=== PATIENT | male | born 1960 | race Caucasian/White ===

== ENCOUNTER 2018-11-15 10:26 | Emergency (ER) | payer BC, OTHER ==
--- OUTSIDE RECORDS SUMMARY | 2018-11-15 10:36 | XMS REPORT | Clinical Summary ---
:1960 Author Organization [facility] Address [address] [place] [address] Care Team Providers Name Role Phone Neil Covington DO Primary Care Provider Allergies Not on File Medications Not on file Active Problems Not on file Social History Tobacco Use Types Packs/Day Years Used Date Never Assessed Sex Assigned at Date Recorded Not on file Job Start Date Occupation Industry Not on file Not on file Not on file Travel History Travel Start Travel End No recent travel history available. Last Filed Vital Signs Not on file Plan of Treatment Not on file Results Not on fileafter 11/14/2017
--- OUTSIDE RECORDS SUMMARY | 2018-11-15 10:36 | XMS REPORT | Continuity of Care Document ---
:1960 Author Organization [facility] Care Team Providers Name Role Phone [facility] Unavailable Unavailable Problems Problem Status Onset Classification Date Comments Source Date Reported M23.8X2 - OTHER Active [facility] INTERNAL 6 [facility] DERANGEMENTS OF Joint Medications No Data Provided for This Section Allergies, Adverse Reactions, Alerts Substance Category Reaction Severity Reaction Status Date Comments Source type Reported No Known Assertion Drug [facility] Medication allergy [place] Allergies Immunizations No Data Provided for This Section Results No Data Provided for This Section Pathology Reports No Data Provided for This Section Diagnostic Reports Report Value Date Source Spine lumbar series EXAMINATION: LUMBAR SPINE SERIES 5 VIEWS 11/08/2018 [facility] DX DATE: 11/08/2018 CLINICAL INDICATION: M54.41 Lumbago with sciatica, right side COMPARISON: None TECHNIQUE: AP, lateral, oblique views of the lumbar spine including a cone view of the lumbosacral region DISCUSSION: For the purpose of this report, there are 5 lumbar-type nonrib-bearing vertebral bodies. The height and alignment of the lumbar vertebral bodies are maintained. There is no spondylolisthesis. There is straightening of the normal cervical lordosis. There is suggestion of congenital narrowing of the spinal canal on the basis of short pedicles. No fracture or aggressive bony changes are identified. There are degenerative changes with anterior osteophytes at L4-L5. There are atherosclerotic calcifications in the aortoiliac vessels. There are clips in the right and left upper quadrants. Please correlate with surgical history. Bowel gas pattern is nonspecific. IMPRESSION: 1. No acute abnormality of the lumbar spine. Straightening of the normal cervical lordosis may be related to positioning and/or muscular spasm. 2. Degenerative changes spondylosis at L4-L5 3. 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 Surgical clips in the right and left upper quadrants. Please correlate with history. RECOMMENDATION: Further evaluation with MRI lumbar spine should be considered symptoms indicate an underlying neural impingement. Chest 2 views DX EXAM: XR CHEST 2 VIEWS 05/28/2016 [facility] DATE: 05/28/2016 2:57 PM TOWER DIRECTOR INDICATION: J18.9 Pneumonia, unspecified organism COMPARISON: None TECHNIQUE: PA and lateral chest radiographs FINDINGS: Patchy airspace opacities are seen in the right lower lobe medially. Minimal streaky linear opacities are seen in the left lower lobe medially. No other lung parenchymal or pleural abnormaliti es are seen. Delphine and pulmonary vasculature are normal. Cardiomediastinal silhouette is normal in appearance. No acute bony abnormality is identified. Surgical clips are seen over the left upper quadrant medially and over the right upper quadrant. IMPRESSION: 1. Patchy airspace opacities in the right lower lobe with streaky linear densities in the left lower lobe, likely a mixture of atelectasis and pneumonia. Follow-up chest x-ray in 2-4 weeks following appropriate treatment is recommended. 2. No other cardiopulmonary abnormalities are seen. Knee wo contrast MRI MRI of the Right Knee Without IV Contrast 05/29/2015 [facility] History: pain. Joint Prior surgery Comparison Study: none Technique: The study was performed on a high field magnet without intravenous contrast. Findings: Menisci: There is prominent truncation of the body and posterior horn of the medial meniscus presumably representing prior partial medial meniscectomy. Body segment is medially extruded. Prominent broad -based degenerative postoperative signal. Lateral meniscus remains intact. Cruciate Ligaments: Anterior and posterior cruciate ligaments are intact. Collateral Ligaments: Medial collateral ligament is intact. Lateral collateral complex appears intact. The patellar and quadriceps tendons are intact. Osseous Structures: Prominent subchondral bone marrow edema along the central weightbearing articular aspect of the medial femoral condyle. There is a serpiginous horizontal focus of decreased signal in tensity parallel to the articular cortex. Findings most likely represent a stress related injury with trabecular microfracture. There is similar prominent bone marrow edema in the medial tibial plateau again with trabecular microfracture. Grade 3/4 chondromalacia central medial femoral condyle and to a lesser extent the medial tibial plateau. The articular cartilage in the lateral compartment is preserved. Soft Tissues: There is a moderate joint effusion There is a 2 cm Argueta cyst. Patellofemoral Compartment: Grade 3/4 chondromalacia patella apex and lateral facet with subchondral cystic change. Grade 2/3 chondromalacia medial trochlear facet. Medial and lateral patellar retinacula appear intact. Impression: Status post presumed partial medial meniscectomy of the body and posterior horn. Medially extruded body segment. No definite recurrent displaced tear. Prominent subchondral bone marrow edema medial femoral condyle and medial tibial plateau with findings highly compatible with a stress related injury with trabecular microfracture. Severe chondromalacia patellofemoral compartment. Small Argueta's cyst. Moderate joint effusion with synovitis. Dictation Code: 100 Consultation Notes No Data Provided for This Section Discharge Summaries No Data Provided for This Section History and Physicals No Data Provided for This Section Vital Signs No Data Provided for This Section Encounters Location Location Encounter Encounter Reason Attending ADM DC Status Source Details Type Number For Provider Date Date Visit [facility] Outpt Diag [id number] Adebayo 05/29 05/30 [facility] [place] [facility] Outpt Diag [id number] Corky 05/28 05/29 [facility] [place] [facility]2016 [facility] Outpt Diag [id number] Neil 11/08 11/09 [facility] /2018 [facility] Procedures No Data Provided for This Section Assessment and Plan No Data Provided for This Section Plan of Care No Data Provided for This Section Social History Social History Date Source No data available for this 11/09/2018 [facility] [place] section No data available for this 05/30/2015 [facility] section Family History No Data Provided for This Section Advance Directives No Data Provided for This Section Functional Status No Data Provided for This Section
--- OUTSIDE RECORDS SUMMARY | 2018-11-15 10:37 | XMS REPORT ---
:1960 [facility] Address [address] [place] [address] [address] [place] [address] Care Team Providers Name Role Phone Unavailable Unavailable Unavailable Payers Payer Name Policy Type Policy Number Effective Date Expiration Date Problems This patient has no known problems. Allergies, Adverse Reactions, Alerts Allergy Allergy Status Severity Reaction(s) Onset Inactive Treating Comments Name Type Date Date Clinician No Known DA Active U 2018-11 Allergies -03 00:00:0 0 Medications This patient has no known medications.
--- OUTSIDE RECORDS SUMMARY | 2018-11-15 10:37 | XMS REPORT | Summary of Care ---
:1960 Author Organization [facility] Outpatient Imaging - [facility] [id number] [place] [address] [address] [place] [address]- Encounter HQ Encntr_alias(FIN) [id number] Date(s): 05/28/16 - 05/28/16 [facility] Outpatient Imaging [facility] [address] [place] [address], [address] [place] [address]- [phone] Discharge Disposition: Home or Self Care Attending Physician: Corky Mcguire MD Vital Signs No data available for this section Problem List No data available for this section Allergies, Adverse Reactions, Alerts Substance Reaction Severity Status NKDA Active Medications No data available for this section Results No data available for this section Immunizations No data available for this section Procedures No data available for this section Social History No data available for this section Assessment and Plan No data available for this section
--- OUTSIDE RECORDS SUMMARY | 2018-11-15 10:37 | XMS REPORT | Summary of Care ---
:1960 Author Organization [facility] Outpatient Imaging - [facility] [address] [place] [address] [address] [place] [address]- Encounter HQ Encntr_alialena(FIN) [id number] Date(s): 11/08/18 - 11/08/18 [facility] Imaging [facility] [address] [facility], [address] [place] [address]- [phone] Discharge Disposition: Home or Self Care Attending Physician: Neil Covington DO Referring Physician: Neil Covington DO Vital Signs No data available for this section Problem List No data available for this section Allergies, Adverse Reactions, Alerts No Known Medication Allergies Medications No data available for this section Results No data available for this section Immunizations No data available for this section Procedures No data available for this section Social History No data available for this section Assessment and Plan No data available for this section
--- OUTSIDE RECORDS SUMMARY | 2018-11-15 10:37 | XMS REPORT | Summary of Care ---
:1960 Author Name Isacc True, Ya Address Unavailable Unavailable , Care Team Providers Name Role Phone York R.N., Ya Unavailable Unavailable LOWE-BHATIA D.O., SUHAS Unavailable Unavailable YEH D.O., LOS-SHANNON Unavailable Unavailable GIANFRANCO Willingham, NANI Unavailable Unavailable APRYL P.AAidan, JAILENE Unavailable Unavailable KAITLIN DO UT, SEEMA Unavailable Unavailable GIANFRANCO MOLINA, NANI Unavailable Unavailable Unavailable Unavailable Unavailable Functional Status Name Dates Details Functional status health issues are not documented Status: Name Dates Details Cognitive status health issues are not documented Status: Problems Name Dates Details Exposure to STD (V01.6, Z20.2) Status: Active 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, 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 Fever and chills (780.60, R50.9) Status: Active Nausea (787.02, R11.0) Status: Active Cervicalgia (723.1, M54.2) Status: Active Acute upper respiratory infection (465.9, J06.9) Status: Active Hypogonadism male (257.2, E29.1) Status: Active Acute bronchitis due to infection (466.0, J20.8) Status: Active Influenza A (487.1, J10.1) Status: Active Insomnia (780.52, G47.00) Status: Active Acute pharyngitis due to other specified organisms (462, J02.8) Status: Active Acute non-recurrent sinusitis of other sinus (461.8, J01.80) Status: Active Elevated glucose level (790.29, R73.09) Status: Active Common cold (460, J00) Status: Active Need for influenza vaccination (V04.81, Z23) Status: Active Vitamin B12 deficiency (266.2, E53.8) Status: Active Chills (780.64, R68.83) Status: Active Acute bronchitis, bacterial (466.0, J20.8) Status: Active Acute diarrhea (787.91, R19.7) Status: Active Restless legs (333.94, G25.81) Status: Active Vitamin D insufficiency (268.9, E55.9) Status: Active Essential hypertension (401.9, I10) Status: Active Acute right-sided low back pain with right-sided sciatica (724.2, M54.41) Status: Active Labile blood pressure (796.2, R09.89) Status: Active Jock itch (698.9, L29.8) Status: Active Medications Name Dates Details Cyanocobalamin 1000 MCG/ML Injection Solution INJECT 1ML INTRAMUSCULARLY WEEKLY. Quantity: 1 Refills: 1 YEH D.O., Mariah 5 x 30 ML Vial Temazepam 30 MG Oral Capsule TAKE 1 CAPSULE AT BEDTIME Quantity: 30 Refills: 3 YEH D.O.SEEMA Start : 20-Jun-2017 Active Testosterone Cypionate 100 MG/ML Intramuscular Solution 0.75 mg intramuscular injection per week Quantity: 6 Refills: 0 YEH D.O., LOS-AUTUMNNActive 10 ML Vial Vitamin D (Ergocalciferol) 11552 UNIT Oral Capsule TAKE 1 CAPSULE WEEKLY. Quantity: 12 Refills: 0 LOWE-BHATIA D.O., LINDAActive valACYclovir HCl - 1 GM Oral Tablet TAKE 2 TABLETS TWICE DAILY FOR 1 DAY AT FIRST SIGN OF ONSET. Quantity: 30 Refills: 1 YEH D.O.SEEMA Start : 18-Nov-2015 Active Lisinopril-hydroCHLOROthiazide 20-25 MG Oral Tablet TAKE 2 TABLET DAILY Quantity: 90 Refills: 1 YEH D.O.SEEMA Start : 19-Mar-2016 Active Advil Cold/Sinus TABS Refills: 0 Active Mejia Cough Drops LOZG Refills: 0 Active Ipratropium [place] 0.03 % Nasal Solution USE 2 SPRAYS IN EACH NOSTRIL 3 TIMES DAILY NEEDED FOR NASAL CONGESTION Quantity: 1 Refills: 0 APRYL JAILENE Rolon Start : 21-Jan-2018 Active 30 ML Bottle ProAir HFA 108 (90 Base) MCG/ACT Inhalation Aerosol Solution INHALE 1 TO 2 PUFFS EVERY 4 TO 6 HOURS NEEDED. Quantity: 1 Refills: 0 NANI MEDEL M.D. Start : 26-May-2018 Active 8.5 GM Inhaler Gabapentin 300 MG Oral Capsule TAKE 1 CAPSULE AT BEDTIME. Quantity: 90 Refills: 1 YEH D.O., SEEMA Start : 30-Aug-2018 Active hydrALAZINE HCl - 25 MG Oral Tablet 1TABLET PO QD EVERY 8 HOURS IF SYSTOLIC ABOVE 160 or DISASTOLIC ABOVE 100 Quantity: 90 Refills: 5 YEH D.O., SEEMA Start : 08-Nov-2018 Active Cyclobenzaprine HCl - 5 MG Oral Tablet TAKE 1 TABLET 3 TIMES DAILY PRN Quantity: 30 Refills: 2 YEH D.O., SEEMA Start : 08-Nov-2018 Active Allergies and Adverse Reactions Name Dates Details No Known Drug Allergies (Allergy) Status: Active Past Medical History Name Dates Details History of Mineral deficiency (269.3, E61.8) Status: Resolved History of pneumonia (V12.61, Z87.01) Status: Resolved History of renal calculi (V13.01, Z87.442) Status: Resolved Procedures Procedure Dates Details [Q] VMA (VANILLYLMANDELIC ACID), RANDOM URINE Date: 08-Nov-2018 History of Gastric Surgery Completed History of Appendectomy Completed History of Cholecystectomy Completed History of Back Surgery Completed History of Knee Surgery Left Completed History of Knee Surgery Right Completed Immunization Name Dates Details Influenza on: 09-Feb-2015 Pneumococcal polysaccharide vaccine, 23 valent on: 09-Feb-2015 Tdap on: 09-Feb-2015 Fluzone Quadrivalent 0.5 ML Intramuscular Suspension on: 22-Feb-2017 Lot #: [id number] Fluzone Quadrivalent 0.5 ML Intramuscular Suspension on: 24-Jan-2018 Lot #: [id number] Family History Name Dates Details Family history of diabetes mellitus (V18.0, Z83.3) Status: Active Name Dates Details Family history of myocardial infarction (V17.3, Z82.49) Status: Active Name Dates Details Family history of malignant neoplasm of prostate (V16.42, Z80.42) Status: Active Family history of diabetes mellitus (V18.0, Z83.3) Status: Active Name Dates Details Family history of muscular dystrophy (V17.2, Z82.0) Status: Active Family history of pneumonia (V18.8, Z83.1) Status: Active Social History Name Dates Details - Status: Name Dates Details Never smoker Vital Signs Date Test Result Details [id number] BP Systolic 125 mm[Hg] Status: Comments: Location: LUE; Position: Sitting BP Diastolic 76 mm[Hg] Status: Comments: Location: LUE; Position: Sitting Physical Findings 10 Status: Comments: PHQ-9 Adult Depression Screening Weight 215 lb Status: Body Mass Index Calculated 29.99 kg/m2 Status: Body Surface Area Calculated 2.17 m2 Status: Height 71 in Status: Temperature 99.4 f Status: Comments: Method: Temporal Respiration Rate 16 /min Status: Heart Rate 77 /min Status: Physical Findings 0 Status: Comments: Alcohol Screen - How many times in the past yr have you had 5 (for M) or 4 (for F) or 4 (for all > 65yrs) or more drinks in a day? Results Date Description Value Details [id number] XRAY Spine lumbar series 87009 Spine lumbar series SEE NOTES Comments: EXAMINATION: LUMBAR SPINE SERIES 5 VIEWSDATE: 11/08/2018CLINICAL INDICATION: M54.41 Lumbago with sciatica, right sideCOMPARISON: NoneTECHNIQUE:AP, lateral, oblique views of the lumbar spine including a cone view of thelumbosacral regionDISCUSSION:For the purpose of this report, there are 5 lumbar-type nonrib-bearingvertebral bodies.The height and alignment of the lumbar vertebral bodies are maintained . Thereis no spondylolisthesis. There is straightening of the normal cervicallordosis. There is suggestion of congenital narrowing of the spinal canal onthe basis of short pedicles. No fracture or aggre ssive bony changes areidentified. There are degenerative changes with anterior osteophytes at L4-L5.There are atherosclerotic calcifications in the aortoiliac vessels. There areclips in the right and le ft upper quadrants. Please correlate with surgicalhistory.Bowel gas pattern is nonspecific.IMPRESSION:1. No acute abnormality of the lumbar spine. Straightening of the normalcervical lordosis may be re lated to positioning and/or muscular spasm.2. Degenerative changes spondylosis at L4-L53. Congenital narrowing of the spinal canal on the basis of short pedicles4. Surgical clips in the right and lef t upper quadrants. Please correlate withhistory.RECOMMENDATION: Further evaluation with MRI lumbar spine should be consideredsymptoms indicate an underlying neural impingement.--Read by: Radha Saunders MDDictated Date/time: 11/08/18 12:01Electronically Signed by: Herbert Saunders 11/09/1911:15FINAL REPORT [id number] [] LIPID PANEL WITH REFLEX TO DIRECT LDL CHOLESTEROL, TOTAL 157 mg/dl (Normal) Range: <200 HDL CHOLESTEROL 59 mg/dl (Normal) Range: >40 TRIGLYCERIDES 102 mg/dl (Normal) Range: <150 LDL-CHOLESTEROL 79 {MG/DL__CAL} (Normal) Comments: Reference range: <100 Desirable range <100 mg/dL for primary prevention; <70 mg/dL for patients with CHD or diabetic patients with > or=2 CHD risk factors. LDL-C is now calculated using the Ceferino-Brittany calculation, which is a validated novel method providing better accuracy than the Friedewald equation in the estimation of LDL-C. Ceferino SILVER et al. ANKIT. 2013;310(19): 2517-5168 (http://education.Rösler miniDaT.IdenTrust/ faq/DBD726) CHOL/HDLC RATIO 2.7 {CALC} (Normal) Range: <5.0 NON HDL CHOLESTEROL 98 {MG/DL__CAL} (Normal) Range: <130 Comments: For patients with diabetes plus 1 major ASCVD risk factor, treating to a non-HDL-C goal of <100 mg/dL (LDL-C of <70 mg/dL) is considered a therapeutic option. [id number] [[facility]] CMP W/EGFR GLUCOSE 102 mg/dl (Normal) Range: 65-139 Comments: Non-fasting reference interval UREA NITROGEN (BUN) 11 mg/dl (Normal) Range: 7-25 CREATININE 1.05 mg/dl (Normal) Range: 0.70-1.33 Comments: For patients >49 years of age, the reference limitfor Creatinine is approximately 13% higher for peopleidentified as -[place]. eGFR NON- 77 {ML/MIN/1.7} (Normal) Range: > OR=60 eGFR 90 {ML/MIN/1.7} (Normal) Range: > OR=60 BUN/CREATININE RATIO NOT APPLICABLE {CALC} Range: 6-22 SODIUM 132 mmol/L (Below low Range: 135-146 threshold) POTASSIUM 4.8 mmol/L (Normal) Range: 3.5-5.3 CHLORIDE 95 mmol/L (Below low Range: 98-110 threshold) CARBON DIOXIDE 28 mmol/L (Normal) Range: 20-32 CALCIUM 9.4 mg/dl (Normal) Range: 8.6-10.3 PROTEIN, TOTAL 8.1 g/dl (Normal) Range: 6.1-8.1 ALBUMIN 4.3 g/dl (Normal) Range: 3.6-5.1 GLOBULIN 3.8 {G/DL__CALC} (Above Range: 1.9-3.7 high threshold) ALBUMIN/GLOBULIN RATIO 1.1 {CALC} (Normal) Range: 1.0-2.5 BILIRUBIN, TOTAL 0.5 mg/dl (Normal) Range: 0.2-1.2 ALKALINE PHSPHATASE 57 u/l (Normal) Range: 40-115 AST 24 u/l (Normal) Range: 10-35 ALT 16 u/l (Normal) Range: 9-46 [id number] [[facility]] CBC (INCLUDES DIFF/PLT) WHITE BLOOD CELL COUNT 7.8 {Thousand/u} (Normal) Range: 3.8-10.8 RED BLOOD CELL COUNT 4.49 {Million/uL} (Normal) Range: 4.20-5.80 HEMAGLOBIN 13.2 g/dl (Normal) Range: 13.2-17.1 HEMATOCRIT 39.1 % (Normal) Range: 38.5-50.0 MCV 87.1 fL (Normal) Range: 80.0-100.0 MCH 29.4 pg (Normal) Range: 27.0-33.0 MCHC 33.8 g/dl (Normal) Range: 32.0-36.0 RDW 15.8 % (Above high threshold) Range: 11.0-15.0 PLATELET COUNT 291 {Thousand/u} (Normal) Range: 140-400 MPV 8.8 fL (Normal) Range: 7.5-12.5 ABSOLUTE NEUTROPHILS 5117 {cells/uL} (Normal) Range: 0802-3939 ABSOLUTE LYMPHOCYTES 1817 {cells/uL} (Normal) Range: 850-3900 ABSOLUTE MONOCYTES 764 {cells/uL} (Normal) Range: 200-950 ABSOLUTE EOSINOPHILS 31 {cells/uL} (Normal) Range: 15-500 ABSOLUTE BASOPHILS 70 {cells/uL} (Normal) Range: 0-200 NEUTROPHILS 65.6 % (Normal) LYMPHOCYTES 23.3 % (Normal) MONOCYTES 9.8 % (Normal) EOSINOPHILS 0.4 % (Normal) BASOPHILS 0.9 % (Normal) [id number] [[facility]] TSH, 3RD GENERATION W/REFLEX TO FT4 TSH, 3RD GENERATION W/REFLEX TO FT4 1.18 {MIU/L} (Normal) Range: 0.40-4.50 [id number] [[facility]] HEMOGLOBIN A1c Comments: REPORT COMMENT:FASTING: NOPATIENT UNABLE TO VOID; ADVISED TO RETURN FOR COLLECTION. HEMOGLOBIN A1c 5.3 {%_of_total} (Normal) Range: <5.7 Comments: For the purpose of screening for the presence ofdiabetes: <5.7 % Consistent with the absence of diabetes5.7-6.4% Consistent with increased risk for diabetes (prediabetes)> or=6. 5% Consistent with diabetes This assay result is consistent with a decreased riskof diabetes. Currently, no consensus exists regarding use ofhemoglobin A1c for diagnosis of diabetes in children. Accord ing to [place] Diabetes Association (ADA)guidelines, hemoglobin A1c <7.0 % represents optimalcontrol in non- diabetic patients. Differentmetrics may apply to specific patient populations. Standards of Medical Care in Diabetes (ADA). Plan of Care Name Dates Details Planned Observations Planned Goals not documented Planned Encounters Appointment; SEEMA MADRIGAL D.O. On: 22-Nov-2018 15:00 Instructions Name Dates Details Instructions not documented Encounters Appointment; JAYRO FOWLER NP On: 11-Feb-2017 9:00 Encounter Diagnosis: Problem not documented Appointment; SEEMA MADRIGAL D.O. On: 22-Feb-2017 7:30 Encounter Diagnosis: Problem not documented Appointment; SEEMA MADRIGAL D.O. On: 26-Apr-2017 8:15 Encounter Diagnosis: Problem not documented Appointment; SEEMA MADRIGLA D.O. On: 17-Aug-2017 9:00 Encounter Diagnosis: Problem not documented Appointment; JAYRO FOWLER NP On: 21-Oct-2017 8:30 Encounter Diagnosis: Problem not documented Appointment; JAILENE PINK P.A. On: 21-Jan-2018 9:30 Encounter Diagnosis: Problem not documented Appointment; JAYRO FOWLER NP On: 24-Jan-2018 14:30 Encounter Diagnosis: Problem not documented Appointment; SEEMA MADRIGAL D.O. On: 01-Feb-2018 16:30 Encounter Diagnosis: Problem not documented Appointment; NANI MEDEL M.D. On: 26-May-2018 11:30 Encounter Diagnosis: Problem not documented Appointment; SEEMA MADRIGAL D.O. On: 30-Aug-2018 12:15 Encounter Diagnosis: Problem not documented Appointment; SEEMA MADRIGAL D.O. On: 08-Nov-2018 10:45 Encounter Diagnosis: Problem not documented
--- OUTSIDE RECORDS SUMMARY | 2018-11-15 10:37 | XMS REPORT | Summary of Care ---
:1960 Author Organization [facility] Outpatient Imaging - [place] Encounter Pari(KARLA) [id number] Date(s): 05/29/15 - 05/29/15 [facility] Outpatient Imaging - [place] Discharge Disposition: Home Attending Physician: Adebayo Rios MD Vital Signs No data available for [...]
[2018-11-15] MEDS ORDERED: METOPROLOL TARTRATE 5 MG/5 ML INJ IV ONE (10:49)
[2018-11-15] MEDS ORDERED: NA CHLORIDE 0.9% 1,000 ML ONE (10:49)
[2018-11-15 11:11] LABS: Absolute Lymphocytes (CBC) 1.9 K/uL (0.7-4.9); Basophils % 0.7 % (0-1.3); Hematocrit 42.3 % (39.6-49.0); Lymphocytes % 18.1 % (15.3-44.8); MPV 6.9 fL (7.6-11.3); RBC Red Blood Cell Count 4.94 M/uL (4.33-5.43)
[2018-11-15 11:18] LABS: Protime INR 0.94
[2018-11-15 11:39] LABS: ALT/SGPT 21 U/L (12-78); AST/SGOT 17 U/L (15-37); Albumin 3.6 g/dL (3.4-5.0); Alkaline Phosphatase 74 U/L (45-117); BUN Blood Urea Nitrogen 9 mg/dL (7-18); Bicarbonate 28 mmol/L (21-32); Bilirubin Direct 0.1 mg/dL (0-0.2); Bilirubin Total 0.4 mg/dL (0.2-1.0); Glucose Level 97 mg/dL (74-106); Magnesium 1.9 mg/dL (1.8-2.4); NT PRO-BNP 10 pg/mL (<125); Potassium 4.5 mmol/L (3.5-5.1); Protein, Total 8.5 g/dL (6.4-8.2); Sodium Level 134 mmol/L (136-145); Troponin (Emerg Dept Use Only) < 0.02 ng/mL (0.0-0.045)
--- NOTE | 2018-11-15 11:44 | RAD REPORT ---
EXAM DESCRIPTION: Brittany Single View11/15/2018 11:30 am CLINICAL HISTORY: sob COMPARISON: 2012 FINDINGS: The lungs appear clear of acute infiltrate. The heart is normal size IMPRESSION: No acute abnormalities displayed
--- NOTE | 2018-11-15 12:15 | RAD REPORT ---
EXAM DESCRIPTION: CT - Chest For Pe Angio - 11/15/2018 11:57 am CLINICAL HISTORY: Chest pain, dyspnea COMPARISON: Portable chest same date, PE study 2008 TECHNIQUE: Dynamically enhanced 3 mm thick images of the chest were obtained during administration o f approximately 150mL Isovue 370 IV contrast. Coronal and oblique MIP reconstruction images were gene rated and reviewed. Exam utilizes a protocol to evaluate the pulmonary arterial tree. All CT scans are performed using dose optimization technique as appropriate and may include automated exposure control or mA/KV adjustment according to patient size. FINDINGS: Exam has significant limitation due to respiratory motion in the mid and lower lung rico . The patient has no central or lobar pulmonary emboli. No segmental branch pulmonary emboli suspecte d. The far peripheral subsegmental branches are more difficult to assess but are also believed to be negative. The aorta as imaged shows no acute or suspicious finding. No pericardial thickening or effusion. No infiltrate or mass in the lung parenchyma. No pleural effusion or pleural thickening. Interstitial markings are accentuated by the motion. Significant edema or infiltrate are doubtful. No mediastinal or hilar suspicious masses. No chest wall masses or abnormal axillary lymphadenopathy. IMPRESSION: Motion degraded study without identifiable pulmonary emboli. Interstitial markings accentuated by motion. No acute lung parenchymal process suspected.
--- NOTE | 2018-11-15 12:17 | EKG ---
Test Date: 2018-11-15 Test Time: 10:55:22 Dope Edger: ZEYNEP MEASUREMENT RESULTS: Intervals: Rate: 112 ME: 134 QRSD: 92 QT: 308 QTc: 420 Herman: P: 56 ME: 134 QRS: 8 T: 57 INTERPRETIVE STATEMENTS: Sinus tachycardia Possible Left atrial enlargement Borderline ECG Compared to ECG 12/12/2011 12:20:24 Sinus bradycardia no longer present Electronically Signed On 11-15-18 12:16:50 CDT by Mauricio Cronin
[2018-11-15 13:33] LABS: Barbiturates NEGATIVE (NEGATIVE); Benzodiazepines NEGATIVE (NEGATIVE); Cocaine NEGATIVE (NEGATIVE); METHAMPHETAM NEGATIVE (NEGATIVE); Methadone NEGATIVE (NEGATIVE); Opiates NEGATIVE (NEGATIVE); Phencyclidine NEGATIVE (NEGATIVE); THC Cannibis NEGATIVE (NEGATIVE)
--- NOTE | 2018-11-15 13:33 | EDPHYS ---
Physician Documentation [facility] Name: Kvng Fischer Age: 58 yrs Sex: Male : 1960 Arrival Date: 11/15/2018 Time: 10:33 Bed 4 Private MD: ED Physician Jed Marquez HPI: 11/15 11:19 This 58 yrs old Male presents to ER via Ambulatory with complaints of jr8 Shortness Of Breath, Irregular Pulse. 11:19 The patient has shortness of breath at rest. Onset: The symptoms/episode began/occurred jr8 acutely, yesterday. Duration: The symptoms are continuous. The patient's shortness of breath is aggravated by light activity, walking. Associated signs and symptoms: Pertinent positives: palpitation feeling . Severity of symptoms: At their worst the symptoms were moderate in the emergency department the symptoms are unchanged. The patient has not experienced similar symptoms in the past. The patient has not recently seen a physician. history of daily alcohol use. Last drink yesterday. Normally drinks at night after work . Historical: - Allergies: 10:47 No Known Allergies; ss - Home Meds: 10:47 temazepam 30 mg Oral cap 1 cap once daily [Active]; hydralazine 25 mg Oral tab 1 tab ss three times a day [Active]; lisinopril-hydrochlorothiazide 20-25 mg oral tab 2 tabs once daily [Active]; gabapentin 300 mg oral cap 1 cap nightly [Active]; - PMHx: 10:47 Hypertension; Kidney stones; RLS; Anxiety; ss - PSHx: 10:47 Gastric Bypass; Appendectomy; Cholecystectomy; bilateral knee repair; ss - Immunization history:: Adult Immunizations up to date. - Social history:: Smoking status: Patient/guardian denies using tobacco, Patient uses alcohol, on a daily basis. claims drinking about a 6 pack/day. - Ebola Screening: : Patient denies exposure to infectious person Patient denies travel to an Ebola-affected area in the 21 days before illness onset. ROS: 11:19 Eyes: Negative for injury, pain, redness, and discharge, ENT: Negative for injury, jr8 pain, and discharge, Neck: Negative for injury, pain, and swelling, Abdomen/GI: Negative for abdominal pain, nausea, vomiting, diarrhea, and constipation, Back: Negative for injury and pain, MS/Extremity: Negative for injury and deformity, Skin: Negative for injury, rash, and discoloration, Neuro: Negative for headache, weakness, numbness, tingling, and seizure. 11:19 Cardiovascular: Positive for palpitations, Negative for chest pain, edema, orthopnea, paroxysmal nocturnal dyspnea. 11:19 Respiratory: Positive for dyspnea on exertion, shortness of breath, Negative for cough, sputum production, wheezing. Exam: 11:19 Eyes: Pupils equal round and reactive to light, extra-ocular motions intact. Lids and jr8 lashes normal. Conjunctiva and sclera are non-icteric and not injected. Cornea within normal limits. Periorbital areas with no swelling, redness, or edema. ENT: Nares patent. No nasal discharge, no septal abnormalities noted. Tympanic membranes are normal and external auditory canals are clear. Oropharynx with no redness, swelling, or masses, exudates, or evidence of obstruction, uvula midline. Mucous membranes moist. Neck: Trachea midline, no thyromegaly or masses palpated, and no cervical lymphadenopathy. Supple, full range of motion without nuchal rigidity, or vertebral point tenderness. No Meningismus. Chest/axilla: Normal chest wall appearance and motion. Nontender with no deformity. No lesions are appreciated. Respiratory: Lungs have equal breath sounds bilaterally, clear to auscultation and percussion. No rales, rhonchi or wheezes noted. No increased work of breathing, no retractions or nasal flaring. Abdomen/GI: Soft, non-tender, with normal bowel sounds. No distension or tympany. No guarding or rebound. No evidence of tenderness throughout. Back: No spinal tenderness. No costovertebral tenderness. Full range of motion. Skin: Warm, dry with normal turgor. Normal color with no rashes, no lesions, and no evidence of cellulitis. MS/ Extremity: Pulses equal, no cyanosis. Neurovascular intact. Full, normal range of motion. Neuro: Awake and alert, GCS 15, oriented to person, place, time, and situation. Cranial nerves II-XII grossly intact. Motor strength 5/5 in all extremities. Sensory grossly intact. Cerebellar exam normal. Normal gait. 11:19 Cardiovascular: Rate: tachycardic, Rhythm: regular, Pulses: Pulses are 2+ in bilateral radial, brachial, femoral, popliteal, posterior tibial and and dorsalis pedis arteries.. Heart sounds: normal, normal S1and S2, no S3 or S4, no murmur, no rub, no gallop, Edema: is not appreciated, JVD: is not appreciated. Vital Signs: 10:47 BP 138 / 90; Pulse 122; Resp 22; Temp 98.9; Pulse Ox 98% on R/A; Weight 97.52 kg; ss Height 5 ft. 11 in. (180.34 cm); Pain 6/10; 10:56 BP 123 / 88; Pulse 90 MON; Resp 12; Pulse Ox 95% on R/A; sv 12:14 BP 154 / 92; Pulse 86 MON; Resp 17; Pulse Ox 97% ; sv 12:49 BP 131 / 90; Pulse 92 MON; Resp 15; Pulse Ox 97% on R/A; sv 13:30 BP 150 / 87; Pulse 86; Resp 15; Pulse Ox 96% ; sv 10:47 Body Mass Index 29.99 (97.52 kg, 180.34 cm) ss 10:56 Sinus Rhythm sv 12:14 Sinus Rhythm sv 12:49 Sinus Rhythm sv MDM: 10:32 Patient medically screened. jr8 13:26 Differential diagnosis: Anxiety Reaction CHF exacerbation, Chronic Obstructive jr8 Pulmonary Disease Myocardial Infarction pneumonia, Pneumothorax Psychogenic pulmonary edema, Pulmonary Embolism Sepsis Unstable Angina. Data reviewed: vital signs, nurses notes, lab test result(s), EKG, radiologic studies, CT scan, plain films. Data interpreted: Pulse oximetry: on room air is 97 %. Interpretation: normal. Counseling: I had a detailed discussion with the patient and/or guardian regarding: the historical points, exam findings, and any diagnostic results supporting the discharge/admit diagnosis, lab results, radiology results, the need for outpatient follow up. Response to treatment: the patient's symptoms have resolved after treatment, patient is well hydrated. ED course: Patient feeling much better. Not in acute withdrawal. Talked about f/u with clinic to help get off of alcohol. Patient has something set up currently and is getting back with them today to start treatment. Will send home with general anxiety medication. If worse will f/u . 11/15 10:39 Order name: Basic Metabolic Panel; Complete Time: 11:40 [facility] 11/15 10:39 Order name: CBC with Diff; Complete Time: 11:11 11/15 10:39 Order name: LFT's; Complete Time: 11:40 11/15 10:39 Order name: Magnesium; Complete Time: 11:40 11/15 10:39 Order name: NT PRO-BNP; Complete Time: 11:40 11/15 10:39 Order name: PT-INR; Complete Time: 11:28 11/15 10:39 Order name: Troponin (emerg Dept Use Only); Complete Time: 11:40 11/15 10:39 Order name: XRAY Chest (1 view); Complete Time: 12:04 11/15 10:39 Order name: ETOH Level; Complete Time: 11:40 11/15 10:39 Order name: UDS 11/15 10:39 Order name: Blood Culture Adult (2) 11/15 10:39 Order name: Procalcitonin; Complete Time: 12:35 11/15 10:39 Order name: Lactate; Complete Time: 11:28 11/15 13:32 Order name: Urine Dipstick--Ancillary (enter results) bd 11/15 10:39 Order name: EKG; Complete Time: 10:47 11/15 10:39 Order name: Cardiac monitoring; Complete Time: 10:42 11/15 10:39 Order name: EKG - Nurse/Tech; Complete Time: 10:56 11/15 10:39 Order name: IV Saline Lock; Complete Time: 10:42 11/15 10:39 Order name: Labs collected and sent; Complete Time: 10:43 11/15 10:39 Order name: O2 Per Protocol; Complete Time: 10:43 11/15 10:39 Order name: O2 Sat Monitoring; Complete Time: 10:43 11/15 11:41 Order name: CT Chest For PE Angio; Complete Time: 12:35 Administered Medications: 10:55 Drug: Metoprolol 5 mg Route: IVP; Site: right forearm; sv 11:30 Follow up: Response: No adverse reaction sv 10:56 Drug: NS 0.9% 1000 ml Route: IV; Rate: 1000 ml; Site: right forearm; sv 12:00 Follow up: Response: No adverse reaction; IV Status: Completed infusion; IV Intake: sv 1000ml Disposition: 11/16 09:15 Co-signature as Attending Physician, Jed Marquez MD I agree with the assessment and tiffani plan of care. Disposition: 11/15/18 13:28 Discharged to Home. Impression: Anxiety disorder, unspecified, Tachycardia, unspecified. - Condition is Stable. - Discharge Instructions: Alcohol Intoxication, Panic Attacks, Alcohol Use Disorder, Alcohol Abuse and Nutrition, Generalized Anxiety Disorder, Sinus Tachycardia. - Prescriptions for Hydroxyzine HCl 50 mg Oral Tablet - take 1 tablet by ORAL route every 8 hours As needed; 20 tablet. - Medication Reconciliation Form, Thank You Letter, Antibiotic Education, Prescription Opioid Use form. - Follow up: Private Physician; When: 2 - 3 days; Reason: Recheck today's complaints, Continuance of care, Re-evaluation by your physician. - Problem is new. - Symptoms have improved. Signatures: Dispatcher [employer] Aleshia Carvajal RN RN sv Anderson, Corey, MD MD cha Smirch, Shelby, RN RN ss Roszak, Josh, PA PA jr8 Corrections: (The following items were deleted from the chart) 11/15 13:39 13:28 11/15/2018 13:28 Discharged to Home. Impression: Anxiety disorder, unspecified; sv Tachycardia, unspecified. Condition is Stable. Forms are Medication Reconciliation Form, Thank You Letter, Antibiotic Education, Prescription Opioid Use. Follow up: Private Physician; When: 2 - 3 days; Reason: Recheck today's complaints, Continuance of care, Re-evaluation by your physician. Problem is new. Symptoms have improved. jr8
--- NOTE | 2018-11-15 13:33 | ER ---
Nurse's Notes [facility] Name: Kvng Fischer Age: 58 yrs Sex: Male : 1960 Arrival Date: 11/15/2018 Time: 10:33 Bed 4 Private MD: Diagnosis: Anxiety disorder, unspecified;Tachycardia, unspecified Presentation: 11/15 10:41 Presenting complaint: Patient states: shortness of breath that began yesterday followed ss by pain to upper back between shoulder blades. Tremors noted, patient states that he normally does not shake like he is now. Drinks reportedly 6-8 beers every evening. Last drink was yesterday. Denies fever, N/V/D. Transition of care: patient was not received from another setting of care. Onset of symptoms was October 14, 2018. Risk Assessment: Do you want to hurt yourself or someone else? Patient reports no desire to harm self or others. Initial Sepsis Screen: Does the patient meet any 2 criteria? No. Patient's initial sepsis screen is negative. Does the patient have a suspected source of infection? No. Patient's initial sepsis screen is negative. Care prior to arrival: None. 10:41 Method Of Arrival: Ambulatory ss 10:41 Acuity: SPENCER 2 ss Historical: - Allergies: 10:47 No Known Allergies; ss - Home Meds: 10:47 temazepam 30 mg Oral cap 1 cap once daily [Active]; hydralazine 25 mg Oral tab 1 tab ss three times a day [Active]; lisinopril-hydrochlorothiazide 20-25 mg oral tab 2 tabs once daily [Active]; gabapentin 300 mg oral cap 1 cap nightly [Active]; - PMHx: 10:47 Hypertension; Kidney stones; RLS; Anxiety; ss - PSHx: 10:47 Gastric Bypass; Appendectomy; Cholecystectomy; bilateral knee repair; ss - Immunization history:: Adult Immunizations up to date. - Social history:: Smoking status: Patient/guardian denies using tobacco, Patient uses alcohol, on a daily basis. claims drinking about a 6 pack/day. - Ebola Screening: : Patient denies exposure to infectious person Patient denies travel to an Ebola-affected area in the 21 days before illness onset. Screenin:35 Abuse screen: Denies threats or abuse. Denies injuries from another. Nutritional sv screening: No deficits noted. Tuberculosis screening: No symptoms or risk factors identified. Fall Risk None identified. Assessment: 10:35 General: Appears in no apparent distress. uncomfortable, well groomed, well developed, sv Behavior is cooperative, appropriate for age, anxious, tremors noted. Pain: Complains of pain in thoracic area Pain currently is 6 out of 10 on a pain scale. Pain began 1 day ago. Is continuous. Neuro: Level of Consciousness is awake, alert, obeys commands, Oriented to person, place, time, situation, Moves all extremities. Full function Gait is steady, Speech is normal. Cardiovascular: Patient's skin is warm and dry. Rhythm is sinus tachycardia. Respiratory: Reports shortness of breath on exertion Airway is patent Respiratory effort is even, unlabored, Respiratory pattern is symmetrical, tachypnea. Derm: Skin is pink, warm \T\ dry. Musculoskeletal: Range of motion: intact in all extremities. 11:30 Reassessment: Patient appears in no apparent distress at this time. Patient and/or sv family updated on plan of care and expected duration. Pain level reassessed. Patient is alert, oriented x 3, equal unlabored respirations, skin warm/dry/pink. 12:15 Reassessment: Patient appears in no apparent distress at this time. Patient and/or sv family updated on plan of care and expected duration. Pain level reassessed. Patient is alert, oriented x 3, equal unlabored respirations, skin warm/dry/pink. 13:38 Reassessment: Patient appears in no apparent distress at this time. Patient and/or sv family updated on plan of care and expected duration. Pain level reassessed. Patient is alert, oriented x 3, equal unlabored respirations, skin warm/dry/pink. Patient states feeling better. Patient states symptoms have improved. Vital Signs: 10:47 BP 138 / 90; Pulse 122; Resp 22; Temp 98.9; Pulse Ox 98% on R/A; Weight 97.52 kg; ss Height 5 ft. 11 in. (180.34 cm); Pain 6/10; 10:56 BP 123 / 88; Pulse 90 MON; Resp 12; Pulse Ox 95% on R/A; sv 12:14 BP 154 / 92; Pulse 86 MON; Resp 17; Pulse Ox 97% ; sv 12:49 BP 131 / 90; Pulse 92 MON; Resp 15; Pulse Ox 97% on R/A; sv 13:30 BP 150 / 87; Pulse 86; Resp 15; Pulse Ox 96% ; sv 10:47 Body Mass Index 29.99 (97.52 kg, 180.34 cm) ss 10:56 Sinus Rhythm sv 12:14 Sinus Rhythm sv 12:49 Sinus Rhythm sv ED Course: 10:32 Jonnie Herrera PA [facility]. jr8 10:32 Jed Marquez MD is Attending Physician. jr8 10:32 Aleshia Mccormick RN is Primary Nurse. sv 10:33 Patient arrived in ED. as 10:35 Patient has correct armband on for positive identification. Placed in gown. Bed in low sv position. Call light in reach. Side rails up X2. engine monitor on. Pulse ox on. NIBP on. Door closed. Warm blanket given. Pillow given. Head of bed elevated. 10:40 Initial lab(s) drawn, by ED staff, sent to lab. Inserted saline lock: 20 gauge in right sv forearm, using aseptic technique. ,using aseptic technique. done by Namshi cytotechnologist Blood collected. 10:42 Triage completed. ss 10:47 Arm band placed on right wrist. ss 10:50 First set of blood cultures drawn by ne. ms 10:56 EKG done, by radiotelephone technical operator. reviewed by Jonnie SYLVESTER. dt2 11:05 Awaiting lab results, Awaiting radiology results. sv 11:12 X-ray completed. Portable x-ray completed in exam room. Patient tolerated procedure jb2 well. 11:18 XRAY Chest (1 view) In Process Unspecified. EDMS 11:57 CT Chest For PE Angio In Process Unspecified. EDMS 13:38 No provider procedures requiring assistance completed. IV discontinued, intact, sv bleeding controlled, No redness/swelling at site. Pressure dressing applied. Administered Medications: 10:55 Drug: Metoprolol 5 mg Route: IVP; Site: right forearm; sv 11:30 Follow up: Response: No adverse reaction sv 10:56 Drug: NS 0.9% 1000 ml Route: IV; Rate: 1000 ml; Site: right forearm; sv 12:00 Follow up: Response: No adverse reaction; IV Status: Completed infusion; IV Intake: sv 1000ml Intake: 12:00 IV: 1000ml; Total: 1000ml. sv Outcome: 13:28 Discharge ordered by MD. patterson 13:38 Discharged to home ambulatory. sv 13:38 Condition: stable 13:38 Condition: improved 13:38 Discharge instructions given to patient, Instructed on discharge instructions, follow up and referral plans. medication usage, Demonstrated understanding of instructions, follow-up care, medications, Prescriptions given X 1. 13:39 Patient left the ED. sv Signatures: Dispatcher [employer] Aleshia Carvajal, Sabino Segura RN, Amelia as Solis, Maria ms Smirch, Shelby, Jonnie Shin RN, Lilian Gutierrez2 Corrections: (The following items were deleted from the chart) 10:56 10:40 Inserted saline lock: 20 gauge in right antecubital area, using aseptic sv technique. ,using aseptic technique. done by Mariajose liu Blood collected. sv
[2018-11-15 13:40] LABS: Urine Blood NEGATIVE (NEG); Urine Glucose NEGATIVE (NEG); Urine Protein NEGATIVE (NEG); Urine Specific Gravity 1.015 (1.005-1.030); Urine pH 7.5 (5.0-7.0)
[2018-11-15 14:13] VITALS: TEMP 98.9
[2018-11-15 14:18] VITALS: BP 150/87; O2SAT 96
== END 2018-11-15 13:39 | disposition home or self-care (01) ==
LOC: ER 10:26
DX: F41.9 Anxiety disorder, unspecified (principal); R00.0 Tachycardia, unspecified; I10 Essential (primary) hypertension; Z87.442 Personal history of urinary calculi
CPT/HCPCS: 93005; 87040 ×2; 85025; 80048; 36415; 80320; 83735; 85610; 80076; 80307 ×8; 83605; 81003; 84484; 84145; 83880; 71275; 71045; Q9967; J7030; 96361; 96374; 99285